=== PATIENT | female | born 1960 | race Caucasian/White ===

== ENCOUNTER 2017-10-12 18:15 | Emergency (ER) | payer BC, OTHER ==
[~2017-10-12] VITALS: Ht 165.1 cm; Wt 90.0 kg
[~2017-10-12 18:15] MED LIST: ESTR42.5V VAGINAL; REST30CA PO
[2017-10-12 18:19] VITALS: BP 184/87; PULSE 85; RESP 16; TEMP 99; O2SAT 97
[2017-10-12] MEDS ORDERED: ZOLO50TA PO (18:35)
[2017-10-12] MEDS ORDERED: BACT800T5 PO (18:35)
[2017-10-12] MEDS ORDERED: AMBI10TA PO (18:35)
[2017-10-12] MEDS ORDERED: MUPI2%T TOPICAL (19:18)
[2017-10-12] MEDS ORDERED: CEPH-460 PO (19:18)
[2017-10-12] MEDS ORDERED: TYLETAB34 PO (19:18)
--- NOTE | 2017-10-12 19:19 | PD ---
HPI Chief Complaint: Skin Problem Time Seen by Provider: 19:00 Travel History International Travel<30 days: No Contact w/Intl Traveler<30days: No Traveled to known affect area: No History of Present Illness HPI This is a 57-year-old female here with painful lump in her left nare. Symptoms been present for 2 days. She was seen in the local urgent care clinic yesterday and started on Bactrim. She has had 3 doses and concerned the area is not improving. No fever or chills. Pain is localized to left nare and constant. No aggravating or alleviating factors. Symptom severity is moderate. PFSH Past Medical History Anemia: Yes Asthma: Yes Anxiety: Yes Depression: Yes Diminished Hearing: No Gastrointestinal Disorders: Yes (DIVERTICULITIS) GERD: Yes Genitourinary: Yes (UTI) Hiatal Hernia: Yes Kidney Stones: Yes Respiratory: Yes (SLEEP APNEA) Integumentary: Yes (MRSA OCTOBER 2009) Sleep Apnea: Yes Influenza Vaccination: Yes ?: Not Menopausal: Yes Tubal Ligation: Yes Past Surgical History Gynecologic Surgery: Yes (Tubal lig) Other Surgery: Yes (I & D OCTOBER 2009 FOR MRSA) Social History Alcohol Use: Yes (OCCAS) Tobacco Use: No Substance Use: No Allergies-Medications (Allergen,Severity, Reaction): Coded Allergies: No Known Allergies (Verified Adverse Reaction, Unknown, 10/12/17) Reported Meds & Prescriptions Reported Meds & Active Scripts Active Reported Bactrim DS (Sulfamethoxazole-Trimethoprim) 800-160 Mg Tab 1 Tab PO BID Zoloft (Sertraline HCl) 50 Mg Tab 50 Mg PO DAILY Ambien (Zolpidem Tartrate) 10 Mg Tab 10 Mg PO HS PRN Review of Systems Except as stated in HPI: all other systems reviewed are Neg General / Constitutional: No: Fever Eyes: No: Visual changes HENT: No: Headaches Cardiovascular: No: Chest Pain or Discomfort Respiratory: No: Shortness of Breath Gastrointestinal: No: Abdominal Pain Physical Exam Narrative GENERAL: Alert and well-appearing 7-year-old female SKIN: Warm and dry. HEAD: Normocephalic. EYES: No injection or drainage. Ear/nose/throat: Raised and inflamed area in the left nare which is indurated. No fluctuance. Central scab present with honey colored crust. No erythema noted to the external nose or face. NECK: Supple, trachea midline. No JVD or lymphadenopathy. MUSCULOSKELETAL: No cyanosis, or edema. BACK: No CVA tenderness. Data Data Last Documented VS Vital Signs Date Time Temp Pulse Resp B/P (MAP) Pulse Ox O2 Delivery O2 Flow Rate FiO2 10/12/17 18:19 99.0 85 16 184/87 (119) 97 MDM Medical Decision Making Medical Screen Exam Complete: Yes Emergency Medical Condition: Yes Differential Diagnosis Abscess, cellulitis, folliculitis Narrative Course 57-year-old female with early abscess in the left nare. Area is indurated without fluctuance. Incision and drainage would be quite difficult due to location and is not warranted at this time as there is no fluctuance. She is currently on Bactrim. I will add Keflex and Bactroban ointment. She is followed by ENT Dr. Jeffrey. She is encouraged to make a follow-up appointment with him on either tomorrow or Monday. Return if she develops new or worsening symptoms. Diagnosis Primary Impression: Abscess Referrals: Trent Jeffrey MD Ear / Nose / Throat Specialist Additional Instructions: Apply warm compresses. Bactrim and Keflex as directed. Bactroban ointment in left nare 4 times a day Follow-up with ENT Scripts Acetaminophen-Codeine (Tylenol-Codeine #3) 300-30 mg Tab 1 TAB PO Q6H Y for PAIN, #10 TAB 0 Refills Prov: Alexa Corona 10/12/17 Mupirocin Topical (Bactroban Topical) 22 Gm Cream 1 APPLIC TOPICAL QID for Mgmt Bacterial Infection, #1 TUBE 0 Refills Prov: Alexa Corona 10/12/17 Cephalexin (Keflex) 500 Mg Capsule 500 MG PO Q6H for Infection for 10 Days, #40 CAP 0 Refills Prov: Alexa Corona 10/12/17 Disposition: 01 DISCHARGE HOME Condition: Stable Alexa Corona Oct 12, 2017 19:19
== END 2017-10-12 19:32 | disposition home or self-care (01) ==
LOC: PHEFT 18:15
DX: J34.0 Abscess, furuncle and carbuncle of nose (principal); F41.9 Anxiety disorder, unspecified; F32.9 Major depressive disorder, single episode, unspecified; J45.909 Unspecified asthma, uncomplicated; K21.9 Gastro-esophageal reflux disease without esophagitis; G47.30 Sleep apnea, unspecified
CPT/HCPCS: 99283